=== PATIENT | female | born 1940 | race Caucasian/White ===

== ENCOUNTER 2016-10-28 13:00 | Inpatient (IN) | payer MEDICARE, MEDICAID ==
[~2016-10-28] VITALS: Ht 152.4 cm; Wt 99.3 kg
--- NOTE | ~2016-10-28 | HP ---
PATIENT'S NAME: JUDI ALFONSO [facility] AGE: 76 Y [address] ROOM: [place] [address] LOCATION: [facility] ADMIT DATE: 10/28/2016 History & Physical DISCHARGE DATE: FAMILY PHYSICIAN: PHYSICIAN, UNKNOWN ATTENDING PHYSICIAN: JC MEAD DATE OF SERVICE: CHIEF COMPLAINT: Acute on chronic hypoxic respiratory failure. HISTORY OF PRESENT ILLNESS: The patient is a 76-year-old female with past medical history of diabetes mellitus type 2, obesity, COPD, persistent atrial fibrillation, chronic kidney disease stage 3, hypothyroidism, and chronic steroid use, who presents from [facility] with acute on chronic hypoxic respiratory failure. The patient was admitted on 10/23 at [facility] secondary to rectal bile. The patient had a bedside I and D done by Dr. Cage with packing. The patient was admitted for treatment of infection. The patient was started on Levaquin, Flagyl, and vancomycin. During the stay, the patient reports that she was doing okay and has had received IV fluids also. During her stay, she was noted to have nonsustained ventricular tachycardia when was started on amiodarone and had a stress test done today. However, after stress test, the patient was found to be in acute on chronic hypoxic respiratory failure with a PO2 of 47. The patient was placed on BiPAP with some improvement. The patient was transferred here for further investigation. The patient reports that she takes steroids chronically since. 2012 or . However on admission, prednisone was discontinued. The patient reports that she has been feeling fatigue, tired, and has been having lack of energy since admission. The patient denies any fever, chest pain, productive cough, headache, motor and sensory changes, nausea, vomiting, diarrhea, constipation. Family member around the patient reports that lately the patient have been severely fatigued with lack of energy. PAST MEDICAL HISTORY: 1. Diabetes mellitus, type 2. 2. Diastolic heart failure. 3. COPD. 4. Morbid obesity. 5. Obstructive sleep apnea on BiPAP at night. 6. Atrial fibrillation. 7. CKD stage III. 8. History of MRSA. 9. Hypothyroidism. 10. Colostomy bag secondary to perforated diverticulitis. PATIENT'S NAME: JUDI ALFONSO [facility] AGE: 76 Y [address] ROOM: [place] [address] LOCATION: GICU ADMIT DATE: 10/28/2016 History & Physical DISCHARGE DATE: FAMILY PHYSICIAN: PHYSICIAN, UNKNOWN ATTENDING PHYSICIAN: JC MEAD 11. Venous stasis. PAST SURGICAL HISTORY: 1. Thyroidectomy. 2. Hysterectomy. 3. Cholecystectomy with colostomy bag. 4. Pacemaker placement. 5. Cataract surgery. FAMILY HISTORY: Father of heart attack. Mother of breast cancer The patient is a former smoker and stopped smoking 15 years ago and lives with family. MEDICATIONS: Reviewed. Medications currently being reconciled. REVIEW OF SYSTEMS: All systems have been reviewed and are negative except for what I mentioned in the HPI. PHYSICAL EXAMINATION: VITAL SIGNS: Temperature of 98.1, pulse of 68, blood pressure 97/47, and O2 saturation 94 on 2 L. GENERAL APPEARANCE: The patient is morbidly obese, sitting on lying on bed. No acute distress. HEAD: Normocephalic, atraumatic. EYES: Extraocular muscle intact. NOSE: No nasal discharge. EARS: No ear discharge. MOUTH: Moist oral mucosa. CHEST: Bibasilar rales. HEART: Irregularly irregular. No murmurs, rubs, or gallops. ABDOMEN: Soft and nontender. Colostomy bag present. EXTREMITIES: Pitting edema bilaterally with venous stasis. SKIN: Lower extremity venous stasis. BACK: Left-sided sacral packing present. No drainage expressed. PLANNER: The patient alert and oriented x3. Motor and sensory grossly intact. LABORATORY DATA AND IMAGING STUDIES: Labs done at outside hospital shows white blood cell of 16.5 that is down from initial white blood cell of 18, hemoglobin of 10.6, platelet of 259. Creatinine 1.73, BUN of 14, potassium 4.8, CO2 of 31, and sodium of 140. ABG shows pH of 7.366, pCO2 of 39.2, and PO2 of 42. PATIENT'S NAME: JUDI ALFONSO [facility] AGE: 76 Y [address] ROOM: [address] [address] LOCATION: GICU ADMIT DATE: 10/28/2016 History & Physical DISCHARGE DATE: FAMILY PHYSICIAN: PHYSICIAN, UNKNOWN ATTENDING PHYSICIAN: KHALID,GREENE A Chest x-ray shows mild cardiomegaly and vascular congestion possible right lower extremity atelectasis. ASSESSMENT AND PLAN: 1. Acute on chronic hypoxic respiratory failure, etiology most likely secondary to decompensated diastolic heart failure. The patient exhibits bibasilar rales, anasarca, and chest x-ray suggesting possible vascular congestion and pulmonary edema. The patient's blood pressure is labile currently around systolic blood pressure 100. We will start on low-dose Lasix 5 mg an hour IV. With strict I's and O's. We will monitor the patient clinically and see how she responds. I also suspect the patient's blood pressure will improve with hydrocortisone as the patient might also have been adrenal insufficiency especially since she is on chronic steroid use and steroids have been discontinued on her last admission. 2. Adrenal insufficiency. The patient's presentation of just generalized fatigue and tiredness and possible labile blood pressure is secondary to adrenal insufficiency due to chronic steroid use. However, the patient's prednisone has been discontinued up on admission at the outside hospital. We will give the patient a stress dose steroids of 100 mg steroids t.i.d. We will draw random cortisol level before giving the cortisone. 3. Nonsustained ventricular tachycardia at outside hospital. Has had ischemic workup. Lexiscan results pending to acquire results on Sunday. 4. Obstructive sleep apnea. To continue the BiPAP at bedtime. 5. Diabetes mellitus type 2. To continue home regimen. 6. Decubitus ulcer with status post I and D and packing. The patient on Flagyl, Levaquin, and vancomycin at outside hospital. Blood culture at outside hospital, no growth to date. However, wound culture shows Peptostreptococcus. Until this is finalized, we will continue vancomycin and we will discontinue Levaquin and Flagyl. Of note, the patient is penicillin allergy with anaphylaxis. 7. Hypothyroidism. Continue medication. 8. Gout. Continue home medication. 9. Chronic kidney disease stage 3, stable. Continue medication. 10. Chronic obstructive pulmonary disease. We will have BiPAP and continue Symbicort. 11. Physical deconditioning. PT/OT. Greater than 70 minutes was spent on the patient's care. Greater than 50% was spent on direct patient care. Specially have to go through several documents that was sent from [facility] since which contains stay at [facility] since October 23. Also went over the patient's outpatient medications list of medication. Case was discussed with the patient and family. The patient's question was answered with satisfaction. Code status was discussed on admission. Code status full code. PATIENT'S NAME: JUDI ALFONSO [facility] AGE: 76 Y [address] ROOM: [place] [address] LOCATION: [facility] ADMIT DATE: 10/28/2016 History & Physical DISCHARGE DATE: FAMILY PHYSICIAN: PHYSICIAN, UNKNOWN ATTENDING PHYSICIAN: JC MEAD MD ALEXIA DC/roland /[id number] D: [id number] T: [id number] HISTORY & PHYSICAL
--- NOTE | ~2016-10-28 | DS ---
PATIENT'S NAME: JUDI ALFONSO [facility] AGE: 76 Y [address] ROOM: [address] [address] LOCATION: GPCU ADMIT DATE: 10/28/2016 Discharge Summary DISCHARGE DATE: 11/03/2016 FAMILY PHYSICIAN: Taj Ortiz MD ATTENDING PHYSICIAN: Chay Cid ADDENDUM: In hospital course, neglected to mention sacral abscess. The patient was seen and evaluated by Infectious Diseases on Sunday, November 01, who felt infectious portion of the abscess had resolved, wound cares were appropriate, and to discontinue antibiotics. Throughout stay, antibiotics were able to be initially deescalated to vancomycin, however, difficulty was encountered with dosing given fluctuating renal function. Dosing was unable to be accurately calculated, so transition was made to daptomycin on the and subsequently discontinued following ID recommendations. MD MARCK PAIGE/modl /[id number] d: 11/04/160 t: 11/06/16 1434, DISCHARGE SUMMARY
--- NOTE | ~2016-10-28 | DS ---
PATIENT'S NAME: RAE ALFONSO [facility] AGE: 76 Y [address] ROOM: [address] [address] LOCATION: GPCU ADMIT DATE: 10/28/2016 Discharge Summary DISCHARGE DATE: 11/03/2016 FAMILY PHYSICIAN: Taj Ortiz MD ATTENDING PHYSICIAN: Chay Cid ADMISSION DIAGNOSIS: Lmnsn-xm-aosaklb hypoxic respiratory failure, secondary to diastolic congestive heart failure (heart failure with preserved ejection fraction) with acute exacerbation. SECONDARY DIAGNOSES: Persistent hypokalemia, acute renal failure on chronic kidney disease stage 3, adrenal insufficiency, poorly-controlled type 2 diabetes mellitus-insulin dependent-A1c 9.1, sacral decubitus ulcer with recent sacral abscess status post incision and drainage October 23, chronic obstructive pulmonary disease, obstructive sleep apnea, recent history of nonsustained ventricular tachycardia, morbid obesity, and supratherapeutic INR. CONSULTATIONS: 1. Dr. Cage with Surgery. 2. Dr. Guillermo with Infectious Diseases. PROCEDURES PERFORMED: No further procedures performed following recent I and D of sacral abscess at outside hospital. PRESENTING COMPLAINTS: Progressive shortness of breath, recent abnormal heart rhythm. HOSPITAL COURSE: Rae is a very pleasant 76-year-old female with a past medical history notable for COPD, morbid obesity, poorly-controlled diabetes, persistent atrial fibrillation with occasional aberrancy and recent NSVT at outside hospital, CKD, stage 3, chronic steroid use, and heart failure with preserved ejection fraction who presented as a transfer from [place], where she had been admitted from October 23 through October 28, the date of admission here at [facility]. The patient was transferred here after having been treated with IV fluids and antibiotics for concern of infection in the sacral region with subsequent development of worsening lgxce-qs-hkjecqa hypoxic respiratory failure as well as episode of nonsustained ventricular tachycardia. 1. Sjqqn-sb-rgjqwrq hypoxic respiratory failure, had been deemed secondary to acute exacerbation diastolic heart failure. The patient was treated with Lasix drip initially at 5 mg/hr and after hospital day 2 this was deescalated to bolus dosing, which the patient tolerated quite well with excellent diuresis and greater than 6 kg weight loss. Day prior to discharge, she was transitioned to 40 mg oral Lasix and did well with this with net negative 1.6 liters and this was back down to 20 mg Lasix PATIENT'S NAME: RAE ALFONSO [facility] AGE: 76 Y [address] ROOM: [id number] [place], [place] [address] LOCATION: GPCU ADMIT DATE: 10/28/2016 Discharge Summary DISCHARGE DATE: 11/03/2016 FAMILY PHYSICIAN: Taj Ortiz MD ATTENDING PHYSICIAN: Chay Cid p.o. daily at the time of discharge with additional 20 mg Lasix available p.r.n. weight gain. This was transitioned from recent Bumex as the patient was unaware of recent for Bumex over Lasix as prescription and had done quite well with Lasix and we opted to continue this therapy. She did note ongoing hypokalemia during stay, potassium 3.7 at time of discharge with a magnesium of 2.0, ongoing potassium replacement during stay of stable quantities was ordered at discharge. The patient was back to her home baseline 2 liter oxygen requirement for 3 days prior to discharge and doing well. 2. Adrenal insufficiency, the patient had noted significant fatigue, lack of energy, and in review of recent records, the patient had been on steroids since 2012 or 2013 per her recollection, which had been recently discontinued. Upon admission, she was started on stress-dose steroids unfortunately developing significant resultant hyperglycemia; however, upon deescalation of these steroids with success back to her previous 5 mg daily prednisone, she did well with no further evidence of symptomatic adrenal insufficiency and stable normotensive to borderline hypertensive ranged blood pressures. The patient will be discharged on 5 mg prednisone to be continued indefinitely. 3. Ntnuw-wa-ctdwiol renal failure. Creatinine was noted at outside hospital as high as 1.8 up to 2.0 at our hospital, which improved with diuresis down to 1.2 at day of discharge. 4. Non-sustained ventricular tachycardia, noted at outside hospital, the patient with recent initiation of amiodarone, which seems to have benefitted, transient episodes x3 noted of fleeting chest pain during hospital stay. EKG on date of discharge showing atrial paced rhythm, troponin remains negative, and Lexiscan reviewed from October 27 showing no obvious ischemic or inducible ischemic disease. Recommendation is that the patient follows up with Dr. Roldan, her senior software quality analyst regarding this, and in light of negative stress test, we will focus on optimizing electrolytes, continuing amiodarone, and may need to consider repeat cardiac catheterization in the future despite negative stress testing. 5. Supratherapeutic INR, as high as 4.42 during stay, warfarin was held, finally being resumed on November 02 for an INR of 2.89 and 2.21 on date of discharge to be followed up by PCP. 6. Type 2 diabetes, poorly-controlled, A1c in the last check during stay 9.1. The patient was resumed on home medications at time of discharge, initial hyperglycemia, profoundly impacted by stress-dose hydrocortisone; however, this had returned with stable fasting glucose of 149 on day of discharge. This issue will be continually followed up by PCP. 7. Obstructive sleep apnea. The patient was trialed on CPAP early in stay nocturnally; however, she did not tolerate this and preferred her home oxygen. She did well with this without significant desaturations throughout the night; however, this discussion is ongoing. 8. Morbid obesity, diabetic diet during stay. PATIENT'S NAME: RAE ALFONSO [facility] AGE: 76 Y [address] ROOM: [place] [address] LOCATION: GPCU ADMIT DATE: 10/28/2016 Discharge Summary DISCHARGE DATE: 11/03/2016 FAMILY PHYSICIAN: Taj Ortiz MD ATTENDING PHYSICIAN: Chay Cid 9. Advanced care planning. Extensive discussions with the patient had regarding her cardiopulmonary health as well diabetes and other commodities and life expectancy at this point. It is difficult to determine what is her life-limiting illness; however, most notably with recent significant heart arrhythmia, these discussion were necessitated. She remains a full-code at this point in time and would like to stay around to see some of her great grandchildren grow. DISCHARGE PHYSICAL EXAMINATION: VITAL SIGNS: Condition, on date of exam, last set of vital signs reviewed, temp 98.3, pulse 65, respiratory rate 18, blood pressure 155/64, and saturating 99% on 2 liters. GENERAL: The patient is lying in bed, alert and oriented, comfortable, in no acute distress. CARDIOVASCULAR: Heart is borderline bradycardic of regular with a 2 /6 systolic ejection murmur. RESPIRATIONS: Normal effort, clear to auscultation bilaterally, mildly diminished at bases, 2 liters oxygen via nasal cannula. ABDOMEN: Obese, soft, nontender, normoactive bowel sounds. EXTREMITIES: With 1+ bilateral lower extremity, stable, with venous stasis changes. LABORATORY DATA: Labs reviewed and pertinent positives as noted above on the date of discharge. DISCHARGE MEDICATIONS: 1. Atorvastatin 40 mg q.h.s. 2. Febuxostat 40 mg p.o. daily. 3. Fluticasone 2 sprays NS daily. 4. Budesonide formoterol 2 puffs twice daily. 5. Insulin degludec 36 units subcu daily, which was replaced with Levemir at same dose during stay as well as insulin aspart sliding scale. 6. Lactobacillus 1 cap daily. 7. Levothyroxine 50 mcg p.o. daily. 8. Metoprolol tartrate 25 mg p.o. b.i.d. 9. Amlodipine 10 mg p.o. daily. 10. Nystatin powder topical daily. 11. Newly added is nystatin swish and swallow 500,000 units p.o. twice daily for oropharyngeal candidiasis noted during stay. 12. Potassium chloride 20 mEq p.o. 4 times daily. 13. Prednisone 5 mg tab p.o. daily. 14. Pregabalin 50 mg p.o. b.i.d. 15. Warfarin to be resumed at prior 5 mg p.o. daily dose. 16. Venlafaxine 75 mg oral daily. 17. Ipratropium albuterol nebulizer q.4 h. p.r.n. shortness of breath. 18. Anastrozole 1 mg p.o. daily. PATIENT'S NAME: RAE ALFONSO [facility] AGE: 76 Y [address] ROOM: [id number] [place], [place] [address] LOCATION: GPCU ADMIT DATE: 10/28/2016 Discharge Summary DISCHARGE DATE: 11/03/2016 FAMILY PHYSICIAN: Taj Ortiz MD ATTENDING PHYSICIAN: hCay Cid 19. Fesoterodine fumarate 8 mg p.o. daily and notably Bumex had been discontinued during stay and not resumed on discharge. 20. Tramadol 100 mg p.o. q.8 h. p.r.n. pain. 21. Albuterol inhaler q.2 h. p.r.n. shortness of breath. 22. Azithromycin 250 mg p.o. 3 days a week in addition to Lasix 20 mg p.o. daily noted above as well as p.r.n. dose. DISCHARGE INSTRUCTIONS AND FOLLOW UP: The patient advised on cardiac diet and we will arrange for BMP and magnesium early next week at Dr. Ortiz's office in advance of hopeful followup next week and the patient is to followup with Dr. Cage in Surgery in 1 to 2 weeks for wound eval and would recommend visit with senior software quality analyst as well in the next 2 to 3 weeks. The patient required 50 minutes of time on date of discharge for coordinating of care. MD MARCK PAIGE/roland /[id number] d: 11/04/168 t: 11/04/16 1353, DISCHARGE SUMMARY
--- NOTE | ~2016-10-28 | CON ---
PATIENT'S NAME: JUDI [facility] AGE: 76 Y [address] ROOM: [address] [address] LOCATION: GPCU ADMIT DATE: 10/28/2016 Consultation DISCHARGE DATE: FAMILY PHYSICIAN: Taj Ortiz MD ATTENDING PHYSICIAN: JC MEAD DATE OF CONSULTATION: 11/01/2016 REASON FOR CONSULTATION: Buttock abscess. HISTORY: Ms. Jeff is a 76-year-old female, who had been admitted to the hospital down in [place] with buttock abscess. She has many medical problems. She presented there on 10/23/2016 with a buttock abscess and underwent an I and D, and it was packed. She was started on broad antibiotics. Initially had a leukocytosis that was gradually improving. She apparently had a nonsustained VT and had a stress test and then had respiratory failure, so was transferred to [facility] for further care. Here, she has been continued on antibiotics, initially on vancomycin but now on daptomycin, and ID is asked to see. She reports initially her labia swelled, and then she had an area on her buttock. Her daughter looked at it, and said that she had a boil there, so this is the reason for the evaluation. She thought it had been going for about a week or so. She is feeling better with less pain, not having any further drainage. No fevers, chills, or sweats. Her breathing is getting better as well. She had some volume overload. She is being followed by Cardiology and Hospitalist here. PAST MEDICAL HISTORY: Significant for type 2 diabetes, diastolic heart failure, COPD, morbid obesity, obstructive sleep apnea, atrial fibrillation, chronic renal insufficiency, history of MRSA, hypothyroidism, and a perforated diverticulitis history with a colostomy. She has a chronic venous stasis. PAST SURGICAL HISTORY: She has had a thyroidectomy, hysterectomy, cholecystectomy, pacemaker, and cataract surgery. FAMILY HISTORY: Father of heart attack. Mother of breast cancer. SOCIAL HISTORY: She is a former smoker. Lives with family, although thinking that she might want to go to a skilled facility now. PATIENT'S NAME: JUDI [facility] AGE: 76 Y [address] ROOM: [address] [address] LOCATION: GPCU ADMIT DATE: 10/28/2016 Consultation DISCHARGE DATE: FAMILY PHYSICIAN: Taj Ortiz MD ATTENDING PHYSICIAN: JC MEAD MEDICATIONS: Noticed. She is on daptomycin. REVIEW OF SYSTEMS: All remaining review of systems otherwise negative with pertinent positives and negatives in the HPI. PHYSICAL EXAMINATION: GENERAL: She is not in any acute distress. Awake, alert, and oriented. VITAL SIGNS: T-max is 98.2, blood pressure 164/86, pulse 62, respirations 20. HEENT: NC/AT. EOMI, PERRLA. NECK: Supple. LUNGS: Decreased. HEART: Regular with a systolic murmur. ABDOMEN: Protuberant, soft, nontender. EXTREMITIES: No cyanosis, clubbing, or edema. SKIN: She has a small lesion on her left buttock near her gluteal crease that is clean. It is not deep. There is no drainage. There is no surrounding erythema. There is no odor. It is only mildly tender. DATA: It does not appear that a culture of the abscess was drawn. She had blood cultures drawn that have no growth. Her white count has steadily improved and now it is 12.3, hemoglobin 9.9, platelet count is 271. Creatinine is 1.6. ASSESSMENT AND PLAN: Buttock abscess, status post I and D. It looks clean without any ongoing signs of infection. We will continue wound care on her, and I do not think she needs any further antibiotics. We will stop the daptomycin today. Please call us with questions. MD BONNIE BROWN/ferchol /[id number] d: 11/01/162104 t: 11/02/16813, CONSULTATION REPORT
[2016-10-28 17:50] LABS: BASOPHIL # 0.1 K/uL (0.0-0.2); BASOPHIL % 0.4 %; EOSINOPHIL # 0.2 K/uL (0.0-0.5); EOSINOPHIL % 1.5 %; HEMATOCRIT 31.7 % (33.0-46.0); HEMOGLOBIN 9.7 g/dL (10.0-15.0); IMMATURE GRANULOCYTE # 0.1 K/uL (0.0-0.3); IMMATURE GRANULOCYTE % 0.9 %; LYMPHOCYTE # 1.7 K/uL (0.8-4.0); LYMPHOCYTE % 11.4 %; MCH 25.1 pg (27.0-34.0); MCHC 30.6 gm/dL (32.0-36.5); MCV 82.1 fl (83.0-98.0); MONOCYTE # 1.4 K/uL (0.0-1.0); MONOCYTE % 9.3 %; MPV 9.6 fl (9.4-12.4); NEUTROPHIL # (ANC) 11.4 K/uL (1.8-7.8); NEUTROPHIL % 76.5 %; NRBC % 0 /100WBC (0-0.00); PLATELET COUNT 250 K/uL (150-450); RBC 3.86 M/uL (3.50-5.50); RDW-CV 16.5 % (11.9-14.6); WBC 14.9 K/uL (4.0-11.0)
[2016-10-28 18:01] LABS: INR - (THERAPEUTIC) 3.82 (0.92-1.07); PROTIME 40.7 SECONDS (9.8-11.4)
[2016-10-28 18:09] LABS: ALBUMIN 1.9 gm/dL (3.5-5.0); ANION GAP 8.6 (10.0-19.0); CALCIUM 7.7 mg/dL (8.5-10.5); CREATININE 1.7 mg/dL (0.5-1.1); POTASSIUM 3.6 mMol/L (3.7-5.1); TOTAL BILIRUBIN 0.4 mg/dL (0.0-1.5); TOTAL PROTEIN 5.7 g/dL (6.0-8.4)
[2016-10-28] MEDS ORDERED: ACIDOPHILUS-PE1 EAC3 PO (18:48)
[2016-10-28] MEDS ORDERED: CORDARONE,PACE200 MG PO (18:49)
[2016-10-28] MEDS ORDERED: NORVASC10 MG PO (18:49)
[2016-10-28] MEDS ORDERED: ARIMIDEX1 M1 PO (18:49)
[2016-10-28] MEDS ORDERED: BUMETANIDE2 MG PO (18:50)
[2016-10-28] MEDS ORDERED: LIPITOR40 MG PO (18:50)
[2016-10-28] MEDS ORDERED: DUONEB INH (18:51)
[2016-10-28] MEDS ORDERED: FLAGYL500 MG PO (18:52)
[2016-10-28] MEDS ORDERED: EFFEXOR XR75 MG PO (18:52)
[2016-10-28] MEDS ORDERED: FLONASE 50 MCG/16 GM NS (18:54)
[2016-10-28] MEDS ORDERED: LYRICA 50MG CAP50 MG PO (18:55)
[2016-10-28] MEDS ORDERED: LEVOTHROID (SY50 MCG PO (18:55)
[2016-10-28] MEDS ORDERED: LOPRESSOR25 MG PO (18:56)
[2016-10-28] MEDS ORDERED: NOVOLOG FL100 UNIT/1 SUB-Q (18:57)
[2016-10-28] MEDS ORDERED: MYCOSTATIN 500,1 TAB PO (18:58)
[2016-10-28] MEDS ORDERED: K-TAB ER20 MEQ PO (18:59)
[2016-10-28] MEDS ORDERED: SYMBICORT 16010.2 GM INH (19:00)
[2016-10-28] MEDS ORDERED: TOVIAZ8 MG PO (19:00)
[2016-10-28] MEDS ORDERED: ULTRAM50 MG PO (19:01)
[2016-10-28] MEDS ORDERED: ULORIC40 MG PO (19:02)
[2016-10-28] MEDS ORDERED: PROVENTIL OR V6.7 GM INH (19:03)
[2016-10-28] MEDS ORDERED: COUMADIN ** IA5 MG PO (19:04)
[2016-10-28] MEDS ORDERED: LEVEMIR FL100 UNIT/1 SUB-Q (19:10)
[2016-10-28] MEDS ORDERED: NYSTATIN1 EAC1 TOP (19:15)
[2016-10-28] MEDS ORDERED: TRESIBA FL200 UNIT/1 SUB-Q (19:18)
[2016-10-28] MEDS ORDERED: ZITHROMAX250 MG PO (19:19)
[2016-10-29 05:58] LABS: BASOPHIL % 0.2 %; HEMOGLOBIN 9.9 g/dL (10.0-15.0); IMMATURE GRANULOCYTE # 0.1 K/uL (0.0-0.3); IMMATURE GRANULOCYTE % 0.9 %; LYMPHOCYTE # 0.8 K/uL (0.8-4.0); LYMPHOCYTE % 6.3 %; MCH 24.9 pg (27.0-34.0); MCHC 30.9 gm/dL (32.0-36.5); MCV 80.4 fl (83.0-98.0); MONOCYTE # 0.2 K/uL (0.0-1.0); MONOCYTE % 1.5 %; MPV 9.7 fl (9.4-12.4); NEUTROPHIL # (ANC) 11.2 K/uL (1.8-7.8); NEUTROPHIL % 91.1 %; NRBC % 0 /100WBC (0-0.00); PLATELET COUNT 271 K/uL (150-450); RBC 3.98 M/uL (3.50-5.50); RDW-CV 16.3 % (11.9-14.6); WBC 12.3 K/uL (4.0-11.0)
[2016-10-29 06:11] LABS: INR - (THERAPEUTIC) 4.03 (0.92-1.07); PROTIME 42.9 SECONDS (9.8-11.4); PTT 57 SECONDS (25-32)
[2016-10-29 06:31] LABS: ANION GAP 10.6 (10.0-19.0); CREATININE 1.6 mg/dL (0.5-1.1); POTASSIUM 3.6 mMol/L (3.7-5.1); TOTAL BILIRUBIN 0.4 mg/dL (0.0-1.5); TOTAL PROTEIN 5.9 g/dL (6.0-8.4)
[2016-10-29 06:41] LABS: ALBUMIN 1.8 gm/dL (3.5-5.0)
[2016-10-30 08:03] LABS: INR - (THERAPEUTIC) 4.42 (0.92-1.07); PROTIME 47.1 SECONDS (9.8-11.4)
[2016-10-30 13:08] LABS: ANION GAP 10.3 (10.0-19.0); POTASSIUM 3.3 mMol/L (3.7-5.1)
[2016-10-31 04:59] LABS: INR - (THERAPEUTIC) 4.31 (0.92-1.07); PROTIME 45.9 SECONDS (9.8-11.4)
[2016-10-31 05:04] LABS: ANION GAP 11.5 (10.0-19.0); CALCIUM 7.6 mg/dL (8.5-10.5); POTASSIUM 3.5 mMol/L (3.7-5.1)
[2016-10-31 16:21] LABS: ANION GAP 8.5 (10.0-19.0); CALCIUM 7.8 mg/dL (8.5-10.5); CREATININE 2.1 mg/dL (0.5-1.1); POTASSIUM 3.5 mMol/L (3.7-5.1)
[2016-11-01 05:17] LABS: INR - (THERAPEUTIC) 3.85 (0.92-1.07)
[2016-11-01 05:24] LABS: ANION GAP 8.9 (10.0-19.0); CALCIUM 7.7 mg/dL (8.5-10.5); CREATININE 1.6 mg/dL (0.5-1.1); MAGNESIUM 1.9 mg/dL (1.8-2.6); POTASSIUM 3.9 mMol/L (3.7-5.1)
[2016-11-02 04:55] LABS: CALCIUM 7.5 mg/dL (8.5-10.5); CREATININE 1.3 mg/dL (0.5-1.1); INR - (THERAPEUTIC) 2.89 (0.92-1.07); PROTIME 30.7 SECONDS (9.8-11.4)
[2016-11-03 06:04] LABS: PROTIME 23.4 SECONDS (9.8-11.4)
[2016-11-03 06:11] LABS: ANION GAP 8.7 (10.0-19.0); CALCIUM 7.6 mg/dL (8.5-10.5); CREATININE 1.2 mg/dL (0.5-1.1); POTASSIUM 3.7 mMol/L (3.7-5.1)
[2016-11-03 06:17] LABS: INR - (THERAPEUTIC) 2.21 (0.92-1.07)
[2016-11-03 10:46] LABS: CPK 28 IU/L (21-215)
[2016-11-03] MEDS ORDERED: LASIX20 MG PO (16:11)
[2016-11-03] MEDS ORDERED: LASIX20 MG (16:12)
[2016-11-03] MEDS ORDERED: DELTASONE5 MG PO (16:14)
[2016-11-03] MEDS ORDERED: MYCOSTATIN 500,1 TAB PO (16:15)
== END 2016-11-03 17:30 | disposition home health service (06) | DRG 291 ==
LOC: GICU 14:02 → GPCU 14:02 → GICU 10-29 12:28 → GPCU 10-29 17:48
PROVIDERS: Internal Medicine; Nurse Practitioner Family; ADMIT Internal Medicine
DX: I50.33 Acute on chronic diastolic (congestive) heart failure (principal); J96.21 Acute and chronic respiratory failure with hypoxia; L89.329 Pressure ulcer of left buttock, unspecified stage; E27.40 Unspecified adrenocortical insufficiency; E11.22 Type 2 diabetes mellitus with diabetic chronic kidney disease; M46.28 Osteomyelitis of vertebra, sacral and sacrococcygeal region; N18.3 Chronic kidney disease, stage 3 (moderate); J44.9 Chronic obstructive pulmonary disease, unspecified; Z68.41 Body mass index [BMI] 40.0-44.9, adult; E03.9 Hypothyroidism, unspecified; E66.01 Morbid (severe) obesity due to excess calories; G47.33 Obstructive sleep apnea (adult) (pediatric); M10.9 Gout, unspecified
CPT/HCPCS: J0878; J1720; J1940; J3370; J3480; J7040; J7050; J7512